=== PATIENT | female | born 1985 | race Caucasian/White ===

== ENCOUNTER 2017-03-23 17:01 | Emergency (ER) | payer OTHER ==
[2017-03-23 17:12] VITALS: RESP 16; TEMP 98.6
--- NOTE | 2017-03-23 18:42 | EDPHY ---
H & P Time Seen by Provider: 03/23/17 18:37 HPI/ROS: CHIEF COMPLAINT: Vaginal bleeding, 14 weeks HISTORY OF PRESENT ILLNESS: The patient is a 32 y/o female who is 14 weeks , presenting with vaginal bleeding. [No fever, chills, chest pain, shortness of breath, palpitations, vomiting, diarrhea, urinary complaints, headache, lightheadedness. ] REVIEW OF SYSTEMS: Aside from elements discussed in the HPI, a comprehensive 10-point review of systems was reviewed and is negative. PAST MEDICAL HISTORY: SOCIAL HISTORY: VITAL SIGNS: Reviewed by me GENERAL: Well-developed, well-nourished, resting comfortably in no respiratory distress. HEENT: Atraumatic. Eyes: No icterus, no injection. Mouth: moist mucous membranes. No erythema or lesions. Neck: supple with no adenopathy. LUNGS: Clear to auscultation bilaterally, no wheezes, rhonchi or rales. CARDIAC: Regular rate and rhythm, no rubs, murmurs or gallops. ABDOMEN: Soft, nontender, nondistended, bowel sounds normal. BACK: No CVA tenderness. EXTREMITIES: No trauma. No edema. Range of motion is normal throughout. NEURO: Alert and oriented, grossly nonfocal. SKIN: Warm and dry, no rash. PSYCHIATRIC: Normal mentation, no agitation. Portions of this note were transcribed by a medical technologist hematology. I personally performed a history, physical exam, medical decision making, and confirmed accuracy of information the transcribed note. Smoking Status: Never smoked Constitutional: Initial Vital Signs Temperature (C) 37.0 C 03/23/17 17:08 Heart Rate 103 H 03/23/17 17:08 Respiratory Rate 16 03/23/17 17:08 Blood Pressure 134/82 H 03/23/17 17:08 O2 Sat (%) 98 03/23/17 17:08 O2 Delivery Mode Room Air Departure - Departure Referrals: NONE *PRIMARY CARE P,. [Primary Care Provider] - As per Instructions
--- NOTE | 2017-03-23 18:44 | EDPHY ---
H & P Stated Complaint: lower abd cramping (R>L) bleeding since 1529, 14 wks Time Seen by Provider: 03/23/17 18:37 HPI/ROS: CHIEF COMPLAINT: Vaginal bleeding, 14 weeks HISTORY OF PRESENT ILLNESS: The patient is a A+ blood type, 32 y/o female, , who is 14 weeks ( established via 8 week ultrasound), presenting with vaginal bleeding and cramping since 14:30, 2 hours ago. The cramping lasted around 10 minutes. She thinks there were blood clots in the vaginal bleeding. She also had a brief episode of right-sided abdominal pain. Denies prior episodes of spotting, history of gallstones, abdominal surgeries, abdominal trauma. Denies recent sexual intercourse although she did masturbate this morning with a small vibrator. She was placed on antibiotics for a urinary bacterial infection 2 weeks ago. She has had morning sickness, that is exacerbated by her pre-shelby vitamins. No fever, chills, chest pain, shortness of breath, palpitations, vomiting, diarrhea, headache, lightheadedness. REVIEW OF SYSTEMS: Aside from elements discussed in the HPI, a comprehensive 10-point review of systems was reviewed and is negative. PAST MEDICAL HISTORY: 2 elective abortions SOCIAL HISTORY: Fiance at bedside, lives in [place], denies alcohol, tobacco , or marijuana use VITAL SIGNS: HR: 103, BP 134/83, others reviewed by me as normal GENERAL: Well-developed, well-nourished, somewhat anxious.. HEENT: Atraumatic. Eyes: No icterus, no injection. Mouth: moist mucous membranes. No erythema or lesions. Neck: supple with no adenopathy. LUNGS: Clear to auscultation bilaterally, no wheezes, rhonchi or rales. CARDIAC: Regular rate and rhythm, no rubs, murmurs or gallops. ABDOMEN: Lower abdominal tenderness. Soft, nondistended, bowel sounds normal. Uterus is palpable above the symphysis pubis. Pelvic: Scant vaginal bleeding BACK: No CVA tenderness. EXTREMITIES: No trauma. No edema. Range of motion is normal throughout. NEURO: Alert and oriented, grossly nonfocal. SKIN: Warm and dry, no rash. PSYCHIATRIC: Normal mentation, no agitation. Portions of this note were transcribed by a medical specialist. I personally performed a history, physical exam, medical decision making, and confirmed accuracy of information the transcribed note. - Personal History LMP (Females 10-55): Current Tetanus/Diphtheria Vaccine: Unsure Current Tetanus Diphtheria and Acellular Pertussis (TDAP): Unsure - Medical/Surgical History Hx Asthma: No Hx Chronic Respiratory Disease: No Hx Diabetes: No Hx Cardiac Disease: No Hx Renal Disease: No Hx Cirrhosis: No Hx Alcoholism: No Hx HIV/AIDS: No Hx Splenectomy or Spleen Trauma: No Other PMH: elective x 2. no abd surgeries - Social History Smoking Status: Never smoked Constitutional: Initial Vital Signs Temperature (C) 37.0 C 03/23/17 17:08 Heart Rate 103 H 03/23/17 17:08 Respiratory Rate 16 03/23/17 17:08 Blood Pressure 134/82 H 03/23/17 17:08 O2 Sat (%) 98 03/23/17 17:08 O2 Delivery Mode Room Air Allergies/Adverse Reactions: No Known Allergies Allergy (Unverified 03/23/17 18:57) Home Medications: Medication Instructions Recorded 03/23/17 Medical Decision Making - Diagnostics Imaging Results: Ultrasound: Impression: There is a single viable intrauterine gestation at 14 weeks 2 days with evidence of marginal placenta previa, but no subchorionic hemorrhage. The patient should return at 20 weeks gestation for more complete anatomic screening and repeat biometry. Findings were discussed with Pricilla Siegel MD at 20:38, on 03/23/2017. Dictated By: Gilmar Escalera MD Imaging: Discussed imaging studies w/ call center manager Radiologist Procedures: Procedure: A limited transabdominal ultrasound was performed on this patient. The indication for the study was abdominal pain, vaginal bleeding in 14 week female. Evaluate for heart tones. She had a positive 8 week ultrasound. On the examination I found that there single up living IUP with movement and cardiac activity noted. Results of the exam: Single IUP with cardiac activity and movement. The procedure was interpreted and performed by myself, Dr. Siegel. ED Course/Re-evaluation: The patient is a 32 y/o female , who is 14 weeks (established via 8 week ultrasound, presenting with abdominal cramping and vaginal bleeding, onset 2 hours ago. On exam she has scant vaginal bleeding and mild lower abdominal tenderness. 1900: I preformed an bedside limited ultrasound abdominal ultrasound. There is a viable fetus with present cardiac activity and motion. 2044: Spoke with radiologist, he reports the US showed a single, living, viable fetus with marginal placenta previa. Reassessed patient and discussed laboratory and imaging results. I have advised her to have a 20 week ultrasound without fail. Return precautions provided; patient is comfortable with this plan. Differential Diagnosis: Differential diagnosis of the patient's vaginal bleeding includes threatened miscarriage, spontaneous miscarriage, incomplete miscarriage, ectopic , trauma, placenta previa, placenta abruption. - Data Points Laboratory Results: Laboratory Results 03/23/17 19:35 03/23/17 19:35 Medications Given: Discontinued Medications Acetaminophen (Tylenol) 650 mg PO EDNOW ONE Stop: 03/23/17 19:14 Last Admin: 03/23/17 19:35 Dose: 650 mg Sodium Chloride (Ns) 1,000 mls @ 0 mls/hr IV ONCE ONE; Wide Open PRN Reason: Protocol Stop: 03/23/17 19:14 Last Admin: 03/23/17 19:33 Dose: 1,000 mls Departure - Departure Disposition: Home, Routine, Self-Care Clinical Impression: Threatened miscarriage, Marginal placenta previa Condition: Good Instructions: Threatened Miscarriage (ED), Pelvic Rest (ED) Additional Instructions: You have a viable and heart rate and movement were detected on the ultrasound. Drink plenty of fluids. We advised pelvic rest. That means no tampons, douching, or sex until the bleeding stops. Follow up with your [facility] in the next week. Ensure to have a 20 week ultrasound without fail. Return to the Emergency Department if you experience worsening bleeding, vomiting, fevers or other worsening of your symptoms. Referrals: NONE *PRIMARY CARE P,. [Primary Care Provider] - As per Instructions Jamshid Valladares MD [Medical Doctor] - As per Instructions Report Scribed for: Pricilla Siegel Report Scribed by: Sommer Naik Date of Report: 03/23/17 Time of Report: 18:45
[2017-03-23 19:02] LABS: COLOR YELLOW; LEUKOCYTE ESTERASE,URINE NEGATIVE (NEGATIVE); NITRITE,URINE NEGATIVE (NEGATIVE)
[2017-03-23 19:06] LABS: MUCUS TRACE /lpf (NONE-1+); RBC,URINE 50-182 /hpf (0-3)
[2017-03-23] MEDS ORDERED: NS 1,000 ML IV ONE (19:13)
[2017-03-23] MEDS ORDERED: ACETAMINOPHEN 325 MG TAB PO ONE (19:13)
[2017-03-23 19:32] LABS: MUCUS TRACE /lpf (NONE-1+); RBC,URINE 50-182 /hpf (0-3)
[2017-03-23 19:45] LABS: % IMMATURE GRANULYOCYTES 0.3 % (0.0-1.1); ABSOLUTE IMMATURE GRANULOCYTES 0.03 10^3/uL (0.00-0.10); ADD DIFF? NO; ADD MORPH? NO; ADD SCAN? NO; ATYPICAL LYMPHOCYTE FLAG 0 (0-99); FRAGMENT RBC FLAG 0 (0-99); HEMATOCRIT 36.3 % (38.0-47.0); HEMOGLOBIN 12.9 g/dL (12.6-16.3); LEFT SHIFT FLG 0 (0-99); LIPEMIA HEMOLYSIS FLAG 90 (0-99); MEAN CELL HEMOGLOBIN 32.1 pg (27.9-34.1); MEAN CELL HEMOGLOBIN CONCENTR. 35.5 g/dL (32.4-36.7); MEAN CELL VOLUME 90.3 fL (81.5-99.8); MEAN PLATELET VOLUME 10.8 fL (8.7-11.7); PLATELET CLUMPS FLAG 20 (0-99); PLATELET COUNT 194 10^3/uL (150-400); RED BLOOD CELL COUNT 4.02 10^6/uL (4.18-5.33); RED CELL DISTRIBUTION WIDTH 11.9 % (11.5-15.2)
[2017-03-23 20:02] LABS: ALANINE AMINOTRANSFERASE 28 IU/L (9-52); ALBUMIN 3.6 g/dL (3.5-5.0); ALKALINE PHOSPHATASE 42 IU/L (38-126); ANION GAP 10 mEq/L (8-16); ASPARTATE AMINOTRANSFERASE 21 IU/L (14-46); BILIRUBIN,TOTAL 0.3 mg/dL (0.1-1.4); BILIRUBIN-UNCONJUGATED 0.3 mg/dL (0.0-1.1); CALCIUM 9.1 mg/dL (8.5-10.4); CARBON DIOXIDE 22 mEq/l (22-31); CHLORIDE 104 mEq/L (97-110); CREATININE 0.5 mg/dL (0.6-1.0); GLOMERULAR FILTRATION RATE > 60; GLUCOSE 86 mg/dL (70-100); POTASSIUM 3.7 mEq/L (3.5-5.2); SODIUM 136 mEq/L (134-144); TOTAL PROTEIN 6.1 g/dL (6.3-8.2)
[2017-03-23 21:22] VITALS: BP 113/64; PULSE 81; O2SAT 97
== END 2017-03-23 21:21 | disposition home or self-care (01) ==
DX: O20.0 Threatened abortion (principal); O44.02 Complete placenta previa NOS or without hemorrhage, second trimester; O99.282 Endocrine, nutritional and metabolic diseases complicating pregnancy, second trimester; E86.9 Volume depletion, unspecified; Z3A.14 14 weeks gestation of pregnancy

== ENCOUNTER 2017-09-18 00:53 | Inpatient (IN) | payer OTHER ==
[2017-09-18] MEDS ORDERED: MISOPROSTOL 200 MCG TAB PR PRN (02:18)
[2017-09-18] MEDS ORDERED: TERBUTALINE SULFATE 1 MG/ML VIAL IV PRN (02:18)
[2017-09-18] MEDS ORDERED: LIDOCAINE 1% 300 MG/30 ML SDV SC PRN (02:18)
[2017-09-18] MEDS ORDERED: OLIVE OIL 118 ML BTL MISC PRN (02:18)
[2017-09-18] MEDS ORDERED: OXYTOCIN/RINGERS LACTATE 1,000 ML IV PRN (02:18)
[2017-09-18] MEDS ORDERED: LR 1,000 ML IV PRN (02:18)
[2017-09-18] MEDS ORDERED: EPSOM SALT 454 GM TP PRN (02:18)
[2017-09-18] MEDS ORDERED: IBUPROFEN 600 MG TAB PO PRN (02:18)
[2017-09-18 02:55] LABS: PLATELET COUNT 201 10^3/uL (150-400)
[2017-09-18] MEDS ORDERED: LIDOCAINE 1% 300 MG/30 ML SDV ONE (02:56)
[2017-09-18] MEDS ORDERED: MISOPROSTOL 200 MCG TAB ONE (02:57)
[2017-09-18] MEDS ORDERED: AMMONIA AROMATIC 1 EACH AMP IH ONE (02:57)
[2017-09-18] MEDS ORDERED: TERBUTALINE SULFATE 1 MG/ML VIAL ONE (02:57)
[2017-09-18] MEDS ORDERED: OLIVE OIL 118 ML BTL ONE (02:57)
[2017-09-18] MEDS ORDERED: OXYTOCIN 10 UNIT/ML VIAL ONE (02:57)
[2017-09-18] MEDS ORDERED: ONDANSETRON 4 MG/2 ML VIAL IVP PRN ×3 (03:30→16:52)
[2017-09-18] MEDS ORDERED: fentaNYL 2MCG/ML/BUP 0.1% RTU 100 ML EP SCH (03:30)
[2017-09-18] MEDS ORDERED: LR 500 ML IV SCH (03:30)
[2017-09-18] MEDS ORDERED: PHENYLEPHRINE HCL 100 MCG/ML SYR IVP PRN (03:30)
[2017-09-18] MEDS ORDERED: NARCOTIC DRIP BAG-TOTAL ALL TYPES IV PRN (03:33)
[2017-09-18] MEDS ORDERED: FENT2MCG/ML&BUP0.1% 1 EA, fentaNYL 200 MCG, BUPIVACAINE 0.5% 20 ML in NS 100 ML IV SCH (03:33)
--- NOTE | 2017-09-18 03:33 | PREANESOB ---
Obstetric Pre-Anesthesia Info - General Info Proposed Procedure: DANIAL : 3 Para: 0 MURPHY: 09/22/17 Gestational Age: 39 week(s) and 3 day(s) - Info Status: Full Term FHR Pattern: Reassuring - Labor Status Cervical Dilation per last OB SVE: 3 PIH: No Magnesium Sulfate in Use: No Indications for Labor Analgesia: BP Control Labor Epidural: Yes Anesthesia Allergies/Adverse Reactions: Allergy/AdvReac Type Severity Reaction Status Date / Time No Known Allergies Allergy Unverified 03/23/17 18:57 Home Medications: Medication Instructions Recorded 03/23/17 Visit Medications: Generic Name Dose Route Start Last Admin Trade Name Freq PRN Reason Stop Dose Admin Lactated Ringer's 1,000 mls @ 0 mls/hr 09/18/17 02:18 Lr IV 09/19/17 02:17 PRN PRN SEE PROTOCOL CONDITIONS Protocol Per Protocol Oxytocin/Lactated Ringer's 1,000 mls @ 125 mls/hr 09/18/17 02:18 Pitocin 20 Units/Lr (Premix) IV PRN PRN Post bleeding Ibuprofen 600 mg 09/18/17 02:18 Motrin PO ONCE PRN post , pain Lidocaine HCl 300 mg 09/18/17 02:18 Lidocaine Hcl 1% SC 03/17/18 02:17 ONCE PRN episiotomy Magnesium Sulfate 454 gm 09/18/17 02:18 Epsom Salt TP 03/17/18 02:17 Q1H PRN perineal discomfort Misoprostol 800 - 1,000 mcg 09/18/17 02:18 Cytotec MN ONCE PRN Vaginal Atony/Bleeding [place] Oil 118 ml 09/18/17 02:18 Sweet Oil MISC 03/17/18 02:17 ONCE PRN perineal massage Terbutaline Sulfate 0.25 mg 09/18/17 02:18 Brethine IV 03/17/18 02:17 ONCE PRN Tachysystole Discontinued Medications Generic Name Dose Route Start Last Admin Trade Name Freq PRN Reason Stop Dose Admin Ammonia (Aromatic Spirit) Confirm 09/18/17 02:57 Ammonia Aromatic Administered 09/18/17 02:58 Dose 1 each IH .STK-MED ONE Lidocaine HCl Confirm 09/18/17 02:56 Lidocaine Hcl 1% Administered 09/18/17 02:57 Dose 300 mg .ROUTE .STK-MED ONE Misoprostol Confirm 09/18/17 02:57 Cytotec Administered 09/18/17 02:58 Dose 1,000 mcg .ROUTE .STK-MED ONE [place] Oil Confirm 09/18/17 02:57 Sweet Oil Administered 09/18/17 02:58 Dose 118 ml .ROUTE .STK-MED ONE Oxytocin Confirm 09/18/17 02:57 Pitocin Administered 09/18/17 02:58 Dose 40 unit .ROUTE .STK-MED ONE Terbutaline Sulfate Confirm 09/18/17 02:57 Brethine Administered 09/18/17 02:58 Dose 1 mg .ROUTE .STK-MED ONE - Vital Signs Height/Weight (Nursing): Height 167.64 cm Weight 84.368 kg Labs: 09/18/17 02:35
[2017-09-18] MEDS ORDERED: PHENYLEPHRINE HCL 100 MCG/ML SYR ONE (03:35)
[2017-09-18] MEDS ORDERED: BUPIVACAINE 0.25% 30 ML SDV ONE (03:35)
[2017-09-18] MEDS ORDERED: fentaNYL 100 MCG/2 ML INJ ONE ×3 (03:35→17:43)
--- NOTE | 2017-09-18 06:12 | GHP ---
[f rep st] PREOP HISTORY AND PHYSICAL DATE OF ADMISSION: 09/18/2017 HISTORY OF PRESENT ILLNESS: The patient is a 32-year-old, G3, A2, at 39+ weeks gestation with an est imated due date of 09/22/2017, who presents after spontaneous rupture of membranes and spontaneous on set of contractions in early labor. The patient had spontaneous leakage of clear fluid at approximat tasha 2320 on 09/17, and thereafter felt contractions start pretty quickly and frequent, however, mild. The patient arrived at the hospital within a couple hours as the contraction frequency was continui ng and they were increasing in intensity. Upon arrival, the patient was 2 cm dilated at 50% effaced. An AmniSure confirmed rupture of membranes as there was not a lot of leakage of fluid. As the pain increased the patient requested an epidural, and this has been placed and the patient is now comfort able and resting. CARE: The patient has been with [facility] since 8 weeks gestation. Initially, t he patient was noted on ultrasound to have complete placenta previa and several ultrasounds were perf ormed through the which revealed migration of the placenta and by 33 weeks the previa was t otally resolved. The patient has a history of anxiety and this was relatively well controlled throug h the . LABS: Maternal blood type A positive with negative antibody screen. RPR nonreactive. Rube lla immune. Hepatitis B surface antigen negative. HIV negative. Cystic fibrosis, SMA both negative . 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 Thyroid function tests were in the normal range. Parvo virus wa s immune. Urinalysis and culture showed contamination. Pap smear was normal. Gonorrhea and chlamyd ia were negative. Verifi testing was negative and MSAFP was negative. A 1-hour Glucola was slightly elevated at 133, but a 3-hour GTT was normal. [place] had [place] testing [place] [facility] [place]. GBS test was negative. PAST MEDICAL HISTORY: Patient with frequent UTIs in the past but none for a couple of years. Family history of depression and the patient has had anxiety in the past. PAST SURGICAL HISTORY: Odontectomy. PAST OBSTETRIC HISTORY: Two elective terminations of in the first trimester in 2013 in 201 5. ALLERGIES: Patient has no known drug allergies. CURRENT MEDICATIONS: Only vitamins. SOCIAL HISTORY: Patient has a supportive partner, Tigre, here with her in labor. The patient has a history of smoking one pack a day up to the age of 27. Reports marijuana use in high school, but non e since. Patient reports social alcohol prior to the . No other illicit drug use. PHYSICAL EXAMINATION: Upon admission the patient is a well-developed, well-nourished, white female i n distress prior to the epidural, but now resting comfortably. Vital signs normal and the patient is afebrile. See nursing documentation for full details. heart tones reveal a category 1 tracin g with a baseline in the 120s with good variability and accelerations. Contractions now continue poly roximately every three minutes after the epidural placement. Pelvic exam reveals the cervix is 3 cm dilated, 90% effaced at 0 station. Clear fluid noted on the exam. Extremities show moderate amount of edema. ASSESSMENT: Intrauterine at 39+ weeks gestation with spontaneous rupture of membranes and onset of contractions in early labor. Patient comfortable with epidural. GBS negative. Fragile X c arrier. PLAN: Will expect a vaginal delivery. Will add Pitocin if needed if contractions space with garrett flores /[id number]/MODL
[2017-09-18] MEDS ORDERED: LR 500 ML IV PRN (07:56)
--- NOTE | 2017-09-18 07:59 | OBPROG ---
Labor Progress Note Assessment/Plan: Assessment: [id number] with IUP@39-3wks labor SROM- clear GBS Negative cat 2 FHR tracing Plan: IUPC placed at this time, unable to continuous pickling line pickler helper contractions start pitocin for augmentation- pt consents reassess 2hr/PRN 09/18/17 14:00 Subjective/Intrapartum Course: 09/18/17 Pt doing well, denies any pain or pressure. comfortable with DANIAL. Objective: 09/18/17 02:35 Patient ABO/Rh A POSITIVE 09/18/17 02:35 - SVE Dilation (cm): 3 Effacement (%): 90 Station: -1 Membranes: SROM Amniotic Fluid Color: Clear - Contraction Pattern Assessment Current Contraction Pattern: Irregular - FHR Assessment Kaur FHR Category: 2 (decel x 6 min noted) - Procedures Non-surgical Procedures: IUPC Oxytocin Orders Assessment - Pre-Induction/Augmentation Assessment Gestational Age: 39 week(s) and 3 day(s) ICD10 Worksheet Patient Problems: Problems Problem Status Onset Normal labor Acute
[2017-09-18] MEDS ORDERED: OXYTOCIN/RINGERS LACTATE 500 ML IV SCH (08:00)
--- NOTE | 2017-09-18 10:52 | PREANESOB ---
Obstetric Pre-Anesthesia Info - General Info Proposed Procedure: C/S : 3 Para: 0 MURPHY: 09/22/17 Gestational Age: 39 week(s) and 3 day(s) - Info Status: Full Term, Kaur Monitors: External FHR Pattern: Reassuring (Worrisome HR trace during oxytocin infusion now resolved with terbutaline. Oxytocin will be restarted in an hour; C/S likely if fetus doesn't tolerate it.) - Labor Status Cervical Dilation per last OB SVE: 3 Station per last OB SVE: -1 Amniotic Fluid Color: Clear Indications for Current Section: Non-reas. Status Labor Epidural: Yes Anesthesia Allergies/Adverse Reactions: Allergy/AdvReac Type Severity Reaction Status Date / Time No Known Allergies Allergy Unverified 03/23/17 18:57 Home Medications: Medication Instructions Recorded 03/23/17 Visit Medications: Generic Name Dose Route Start Last Admin Trade Name Freq PRN Reason Stop Dose Admin Lactated Ringer's 1,000 mls @ 0 mls/hr 09/18/17 02:18 Lr IV 09/19/17 02:17 PRN PRN SEE PROTOCOL CONDITIONS Protocol Per Protocol Oxytocin/Lactated Ringer's 1,000 mls @ 125 mls/hr 09/18/17 02:18 Pitocin 20 Units/Lr (Premix) IV PRN PRN Post bleeding Fentanyl/Bupivacaine HCl 1 ea/ 100 mls @ mls/hr 09/18/17 03:33 Fentanyl 200 mcg/ Bupivacaine IV 09/28/17 03:32 HCl 20 ml/ Sodium Chloride AD JULIANA As Directed Lactated Ringer's 500 mls @ 0 mls/hr 09/18/17 03:30 Lr IV 03/17/18 03:29 CONT JULIANA As Directed Lactated Ringer's 500 mls @ 500 mls/hr 09/18/17 07:56 Lr IV 09/19/17 07:56 PRN PRN Maternal Hypotension Oxytocin/Lactated Ringer's 500 mls @ 0 mls/hr 09/18/17 08:00 Pitocin 30 Units/Lr (Premix) IV 03/17/18 07:59 CONT JULIANA Protocol Per Protocol Ibuprofen 600 mg 09/18/17 02:18 Motrin PO ONCE PRN post , pain Lidocaine HCl 300 mg 09/18/17 02:18 Lidocaine Hcl 1% SC 03/17/18 02:17 ONCE PRN episiotomy Magnesium Sulfate 454 gm 09/18/17 02:18 Epsom Salt TP 03/17/18 02:17 Q1H PRN perineal discomfort Miscellaneous Medication 1 ea 09/18/17 03:33 Narcotic Drip-Total All Types IV 03/17/18 03:32 PRN PRN Pyxis removal Misoprostol 800 - 1,000 mcg 09/18/17 02:18 Cytotec OR ONCE PRN Vaginal Atony/Bleeding [place] Oil 118 ml 09/18/17 02:18 Sweet Oil MISC 03/17/18 02:17 ONCE PRN perineal massage Ondansetron HCl 4 mg 09/18/17 03:30 Zofran IVP 09/19/17 03:29 Q4HRS PRN Nausea/Vomiting, Can't Take PO Phenylephrine HCl 100 mcg 09/18/17 03:30 Neosynephrine IVP 03/17/18 03:29 .Q2M PRN Hypotension Terbutaline Sulfate 0.25 mg 09/18/17 02:18 09/18/17 10:20 Brethine IV 03/17/18 02:17 0.25 mg ONCE PRN Administration Tachysystole Discontinued Medications Generic Name Dose Route Start Last Admin Trade Name Freq PRN Reason Stop Dose Admin Ammonia (Aromatic Spirit) Confirm 09/18/17 02:57 Ammonia Aromatic Administered 09/18/17 02:58 Dose 1 each IH .STK-MED ONE Bupivacaine HCl Confirm 09/18/17 03:35 Sensorcaine 0.25% Sdv Administered 09/18/17 03:36 Dose 30 ml .ROUTE .STK-MED ONE Fentanyl Confirm 09/18/17 03:35 Sublimaze Administered 09/18/17 03:36 Dose 100 mcg .ROUTE .STK-MED ONE Lidocaine HCl Confirm 09/18/17 02:56 Lidocaine Hcl 1% Administered 09/18/17 02:57 Dose 300 mg .ROUTE .STK-MED ONE Misoprostol Confirm 09/18/17 02:57 Cytotec Administered 09/18/17 02:58 Dose 1,000 mcg .ROUTE .STK-MED ONE [place] Oil Confirm 09/18/17 02:57 Sweet Oil Administered 09/18/17 02:58 Dose 118 ml .ROUTE .STK-MED ONE Oxytocin Confirm 09/18/17 02:57 Pitocin Administered 09/18/17 02:58 Dose 40 unit .ROUTE .STK-MED ONE Phenylephrine HCl Confirm 09/18/17 03:35 Neosynephrine Administered 09/18/17 03:36 Dose 1,000 mcg .ROUTE .STK-MED ONE Terbutaline Sulfate Confirm 09/18/17 02:57 Brethine Administered 09/18/17 02:58 Dose 1 mg .ROUTE .STK-MED ONE - Anesthesia History Response to Local Anesthetics: Normal Anesthesia & Operative History: No Prior Problems - Social History Substance Use/Abuse: Denies - Vital Signs Latest Vital Signs (Nursing): Temp Pulse Resp BP Pulse Ox 80 112/60 09/18/17 10:20 09/18/17 10:20 Height/Weight (Nursing): Height 167.64 cm Weight 84.368 kg - Focused Exam Neck exam: FROM Mallampati Score: Class 2 Mouth exam: normal dental/mouth exam Pulmonary: no respiratory distress, no rales or rhonchi, clear to auscultation Cardiovascular: regular rate and rhythym, no murmur, rub, or gallop Labs: 09/18/17 02:35 Patient ABO/Rh A POSITIVE 09/18/17 02:35 General Comments: Epidural in place, working well. Will plan to use it for C/S.
--- NOTE | 2017-09-18 13:45 | OBPROG ---
Labor Progress Note Assessment/Plan: Assessment: [id number] with IUP@ labor GBS Negative cat 2 FHR tracing Prolong decel x 6 min Plan: FSE placed cont to monitor will restart pit in 1 hour, allow baby to recover reassess 2hr/PRN Subjective/Intrapartum Course: 09/18/17 13:45 Pt doing well, denies any pain or pressure. She is comfortable with DANIAL. FOB at BS. Objective: 09/18/17 02:35 Patient ABO/Rh A POSITIVE 09/18/17 02:35 Temp Pulse Resp BP Pulse Ox 80 112/60 09/18/17 10:20 09/18/17 10:20 - SVE Dilation (cm): 5 Effacement (%): 90 Station: 0 Membranes: SROM Amniotic Fluid Color: Clear - Contraction Pattern Assessment Current Contraction Pattern: Irregular - FHR Assessment Kaur FHR (bpm): 140 FHR Pattern Variability: Moderate FHR Category: 2 - Procedures Non-surgical Procedures: FSE - Physical Exam General Appearance: WD/WN, alert Oxytocin Orders Assessment - Pre-Induction/Augmentation Assessment Gestational Age: 39 week(s) and 3 day(s) ICD10 Worksheet Patient Problems: Problems Problem Status Onset Normal labor Acute
--- NOTE | 2017-09-18 14:03 | OBPROG ---
Labor Progress Note Assessment/Plan: Assessment: [id number] with IUP@39-3 labor GBS Negative cat 2 FHR tracing marked variability x 20 min Plan: cont to monitor Dr Jonas vásquez, recommended to give terb restart pit in 1 hour with cat 1 tracing 09/18/17 14:03 09/18/17 14:04 Subjective/Intrapartum Course: 09/18/17 13:45 Pt doing well, denies any pain or pressure. She is comfortable with DANIAL. FOB at BS. Objective: 09/18/17 02:35 Patient ABO/Rh A POSITIVE 09/18/17 02:35 Temp Pulse Resp BP Pulse Ox 80 112/60 09/18/17 10:20 09/18/17 10:20 - SVE Membranes: SROM Amniotic Fluid Color: Clear - Contraction Pattern Assessment Current Contraction Pattern: Irregular - Procedures Non-surgical Procedures: FSE Oxytocin Orders Assessment - Pre-Induction/Augmentation Assessment Gestational Age: 39 week(s) and 3 day(s) ICD10 Worksheet Patient Problems: Problems Problem Status Onset Normal labor Acute
--- NOTE | 2017-09-18 14:48 | OBPROG ---
Labor Progress Note Assessment/Plan: Assessment: [id number] with IUP@39-3 intolerance to labor GBS Negative cat 2 FHR tracing Plan: consult with Dr Mcdaniel likely proceed with c/s reviewed B/R/A- pt verbalizes understanding pt consented, written consent to be obtained 09/18/17 14:47 09/18/17 14:48 Subjective/Intrapartum Course: 09/18/17 13:45 Pt doing well, denies any pain or pressure. She is comfortable with DANIAL. FOB at BS. Objective: 09/18/17 02:35 Patient ABO/Rh A POSITIVE 09/18/17 02:35 Temp Pulse Resp BP Pulse Ox 80 112/60 09/18/17 10:20 09/18/17 10:20 - SVE Dilation (cm): 6 Effacement (%): 90 Station: 0 Membranes: SROM Amniotic Fluid Color: Clear - Contraction Pattern Assessment Current Contraction Pattern: Irregular - FHR Assessment Kaur FHR (bpm): 145 FHR Pattern Variability: Moderate FHR Category: 2 - Procedures Non-surgical Procedures: FSE Oxytocin Orders Assessment - Pre-Induction/Augmentation Assessment Gestational Age: 39 week(s) and 3 day(s) ICD10 Worksheet Patient Problems: Problems Problem Status Onset Normal labor Acute
[2017-09-18] MEDS ORDERED: LR 500 ML IV ONE (15:35)
[2017-09-18] MEDS ORDERED: ceFAZolin 2 GM/DEXTROSE 100 ML IV ONE (15:35)
[2017-09-18] MEDS ORDERED: CITRIC ACID/SODIUM CITRATE 30 ML UDCUP PO ONE (15:46)
[2017-09-18] MEDS ORDERED: morphINE PF 5 MG/10 ML INJ ONE (15:49)
[2017-09-18] MEDS ORDERED: CHLOROPROCAINE HCL 2% 400 MG/20 ML VIAL ONE (15:52)
[2017-09-18] MEDS ORDERED: OXYTOCIN 100 UNITS/10 ML VIAL ONE (15:52)
[2017-09-18] MEDS ORDERED: LR 1,000 ML IV SCH (16:00)
[2017-09-18] MEDS ORDERED: ceFAZolin 2 GM/SWFI 2 GM/20 ML SYR IVP ONE (16:00)
[2017-09-18] MEDS ORDERED: fentaNYL 100 MCG/2 ML INJ IVP PRN (16:46)
[2017-09-18] MEDS ORDERED: MEPERIDINE 25 MG/0.5 ML AMP IVP PRN (16:46)
[2017-09-18] MEDS ORDERED: NALOXONE HCL 0.4 MG/ML INJ IVP PRN (16:46)
--- NOTE | 2017-09-18 17:33 | POSTANESTH ---
Post Anesthetic Evaluation Cardiovascular Status: Normal, Stable Respiratory Status: Normal, Stable, Similar to Pre-op Cond. Level of Consciousness/Mental Status: Can Participate in Eval, Alert and Oriented Pain Control: Adequate, Prn Tx Ordered Nausea/Vomiting Control: Adequate, Prn Tx Ordered Complications Possibly Related to Anesthesia: None Noted
[2017-09-18] MEDS ORDERED: PROMETHAZINE HCL 25 MG/ML INJ IVP PRN (17:41)
[2017-09-18] MEDS ORDERED: ACETAMINOPHEN 325 MG TAB PO PRN (17:41)
[2017-09-18] MEDS ORDERED: SIMETHICONE 80 MG TAB CHEW PO PRN (17:41)
--- NOTE | 2017-09-18 17:50 | SUROPNOTE ---
[facility] Operative Report - Surgery Date of Operation: 09/18/17 Surgeon: Edil Mcdaniel Service Coordinator Elderly Facility: Heidi Nash CNM Anesthesia: Epidural Pre-op Diagnosis: intollerance of labor Post-op Diagnosis: Same Procedure: Primary low transverse section Findings: [id number] baby boy, grossly normal placenta and cord, nl uterus/tubes/ ovaries Inf/Abcess present in the surg proc area at time of surgery?: No EBL: 600cc Complications: None Specimen(s): Cord blood gasses sent, placenta not sent to pathology
[2017-09-18] MEDS: KETOROLAC 30 MG/1 ML SDV IVP SCH (18:52)
[2017-09-18] MEDS: HYDROCODONE/APAP 5/325 TAB PO PRN (22:10)
[2017-09-19] MEDS: KETOROLAC 30 MG/1 ML SDV IVP SCH ×4 (01:24→13:01)
[2017-09-19] MEDS: HYDROCODONE/APAP 5/325 TAB PO PRN ×4 (10:08→21:04)
[2017-09-19] MEDS: DOCUSATE SODIUM 100 MG CAP PO PRN ×2 (10:08→21:04)
--- NOTE | 2017-09-19 10:10 | OBPP ---
Progress Note Assessment/Plan: Assessment: 32 y/o POD #1 s/p LTCS secondary to intolerance to labor doing well. Plan: Ambulate with assistance, PO pain meds, d/c estevez today and support. 09/19/17 10:09 Subjective/ Course: 09/19/17 10:07 Pt is feeling ok this am. She has taken [place] in the middle of the night and Toradol which is working well. She is up in the chair and is tolerating reg diet. She is working on breast feeding and baby is doing well. Estevez is still in place, will be removed later this am. Objective: 09/19/17 06:05 Patient ABO/Rh A POSITIVE 09/18/17 02:35 Temp Pulse Resp BP Pulse Ox 37.1 C 76 16 85/55 L 97 09/19/17 06:00 09/19/17 06:00 09/19/17 06:00 09/19/17 06:00 09/19/17 06:00 Uterine Position/Fundal Height: Umbilicus -2 Uterine Tone: Firm Physical Exam - Physical Exam General Appearance: WD/WN, alert, no apparent distress Neck: non-tender, full range of motion, supple Respiratory: chest non-tender, lungs clear, normal breath sounds Cardiac/Chest: regular rate, rhythm Abdomen: normal bowel sounds, incision (c/d/i) Extremities: swelling (no), José Luis's sign (neg)
[2017-09-19] MEDS: IRON POLYSAC/IRON HEME 28 MG TAB PO SCH (21:05)
[2017-09-20] MEDS: HYDROCODONE/APAP 5/325 TAB PO PRN ×4 (01:04→18:58)
[2017-09-20] MEDS: IBUPROFEN 600 MG TAB PO PRN ×4 (01:04→22:18)
[2017-09-20] MEDS: DOCUSATE SODIUM 100 MG CAP PO PRN ×2 (08:49→21:29)
[2017-09-20] MEDS: IRON POLYSAC/IRON HEME 28 MG TAB PO SCH ×2 (08:49→21:29)
--- NOTE | 2017-09-20 11:49 | OBPP ---
Progress Note Assessment/Plan: Assessment: 1) s/p 1 LTCS secondary to intolerance to labor pod # 2 - pt is stable 2) Anemia - pt is asymptomatic Plan: Continue routine pp care Encourage ambulation Will cont to monitor incision, pt is afebrile Cont iron and colace Plan for d/c home in 24-48 hrs 09/20/17 11:49 Subjective/ Course: 09/19/17 10:07 Pt is feeling ok this am. She has taken [place] in the middle of the night and Toradol which is working well. She is up in the chair and is tolerating reg diet. She is working on breast feeding and baby is doing well. Ayala is still in place, will be removed later this am. Objective: 09/19/17 06:05 Patient ABO/Rh A POSITIVE 09/18/17 02:35 Temp Pulse Resp BP Pulse Ox 36.7 C 83 16 102/65 98 09/20/17 08:00 09/20/17 08:00 09/20/17 08:00 09/20/17 08:00 09/20/17 08:00 Uterine Position/Fundal Height: Umbilicus -2 Uterine Tone: Firm Physical Exam - Physical Exam Respiratory: lungs clear, normal breath sounds Cardiac/Chest: regular rate, rhythm Abdomen: normal bowel sounds, soft, flatus (+), incision (C/D/I, well approximated; minimal erythema noted and marked), other (appropriate tenderness) Extremities: non-tender, normal inspection Skin: normal color, warm/dry Neuro/Psych: alert, normal mood/affect, oriented x 3
[2017-09-21] MEDS: HYDROCODONE/APAP 5/325 TAB PO PRN ×3 (01:25→16:01)
[2017-09-21] MEDS: IBUPROFEN 600 MG TAB PO PRN ×3 (06:16→19:11)
[2017-09-21] MEDS: DOCUSATE SODIUM 100 MG CAP PO PRN ×2 (09:25→21:41)
[2017-09-21] MEDS: IRON POLYSAC/IRON HEME 28 MG TAB PO SCH ×2 (09:25→21:41)
--- NOTE | 2017-09-21 12:24 | OBPP ---
Progress Note Assessment/Plan: Assessment: 32 y/o POD #3 s/p LTCS secondary to intolerance to labor doing well. Plan: Bowel protocol today, support. Continue current pain regimen. 09/19/17 10:09 09/21/17 12:23 Subjective/ Course: 09/19/17 10:07 Pt is feeling ok this am. She has taken [place] in the middle of the night and Toradol which is working well. She is up in the chair and is tolerating reg diet. She is working on breast feeding and baby is doing well. Ayala is still in place, will be removed later this am. 09/21/17 12:21 Pt is doing well today. She has good post op pain control with 1 [place] and scheduled Ibuprofen. She is ambulating and voiding and has min lochia. She has + flatus but no BM yet. Breast feeding is challenging, baby has a shallow latch and they may begin to supplement today. She is beginning to produce good amounts of colustrum. Objective: 09/19/17 06:05 Patient ABO/Rh A POSITIVE 09/18/17 02:35 Temp Pulse Resp BP Pulse Ox 36.1 C 90 16 114/76 97 09/20/17 21:37 09/20/17 21:37 09/20/17 21:37 09/20/17 21:37 09/20/17 21:37 Uterine Position/Fundal Height: Umbilicus -2 Uterine Tone: Firm Physical Exam - Physical Exam General Appearance: alert, no apparent distress Neck: non-tender, full range of motion, supple Respiratory: chest non-tender, lungs clear, normal breath sounds Cardiac/Chest: regular rate, rhythm Abdomen: normal bowel sounds, incision (c/d/i, mi eccomysis in dependent portion , no erythema today) Extremities: swelling (no), José Luis's sign (neg)
[2017-09-22] MEDS: HYDROCODONE/APAP 5/325 TAB PO PRN ×3 (00:09→14:16)
[2017-09-22] MEDS: IBUPROFEN 600 MG TAB PO PRN ×2 (04:13→10:39)
[2017-09-22] MEDS: DOCUSATE SODIUM 100 MG CAP PO PRN (08:09)
[2017-09-22] MEDS: IRON POLYSAC/IRON HEME 28 MG TAB PO SCH (08:09)
[2017-09-22 08:43] VITALS: BP 112/77
--- NOTE | 2017-09-22 16:19 | OBPP ---
Progress Note Assessment/Plan: Assessment: [id number] pod# 4 s/p PLTCS for arrest of dilation and intolerance of labor breast feeding Plan: routine discharge instructions and post care follow up in 2, 4 and 6 weeks 09/22/17 16:17 Subjective/ Course: 09/19/17 10:07 Pt is feeling ok this am. She has taken [place] in the middle of the night and Toradol which is working well. She is up in the chair and is tolerating reg diet. She is working on breast feeding and baby is doing well. Ayala is still in place, will be removed later this am. 09/21/17 12:21 Pt is doing well today. She has good post op pain control with 1 [place] and scheduled Ibuprofen. She is ambulating and voiding and has min lochia. She has + flatus but no BM yet. Breast feeding is challenging, baby has a shallow latch and they may begin to supplement today. She is beginning to produce good amounts of colustrum. 09/22/17 16:18 patient is doing well. pain is well controlled. normal lochia. passing gas and had a bowel movement. denies headache and changes in vision. ready to go home. questions answered. working on breast feeding. Objective: 09/19/17 06:05 Patient ABO/Rh A POSITIVE 09/18/17 02:35 Temp Pulse Resp BP Pulse Ox 36.1 C 74 14 112/77 98 09/22/17 08:00 09/22/17 08:00 09/22/17 08:00 09/22/17 08:00 09/22/17 08:00 Physical Exam - Physical Exam Neck: non-tender, full range of motion, supple Respiratory: chest non-tender, lungs clear, normal breath sounds Cardiac/Chest: normal peripheral pulses, regular rate, rhythm Abdomen: normal bowel sounds, non-tender Extremities: normal range of motion, non-tender, normal inspection, normal capillary refill Skin: normal color, warm/dry, other (incision clean dry and intact) Neuro/Psych: no motor/sensory deficits, alert, normal mood/affect, oriented x 3
--- NOTE | 2017-09-22 16:20 | OBGCSDC ---
General Delivery Information - General Info : 3 Para: 1 Abortions: 2 L&D Analgesia/Anesthesia Type: Epidural Admission Date: 09/18/17 Labs: Patient ABO/Rh A POSITIVE 09/18/17 02:35 Hct 27.5 % (38.0-47.0) L 09/19/17 06:05 - Hospital Course Intrapartum: 09/18/17 13:45 Pt doing well, denies any pain or pressure. She is comfortable with DANIAL. FOB at BS. : 09/19/17 10:07 Pt is feeling ok this am. She has taken [place] in the middle of the night and Toradol which is working well. She is up in the chair and is tolerating reg diet. She is working on breast feeding and baby is doing well. Ayala is still in place, will be removed later this am. 09/21/17 12:21 Pt is doing well today. She has good post op pain control with 1 [place] and scheduled Ibuprofen. She is ambulating and voiding and has min lochia. She has + flatus but no BM yet. Breast feeding is challenging, baby has a shallow latch and they may begin to supplement today. She is beginning to produce good amounts of colustrum. 09/22/17 16:18 patient is doing well. pain is well controlled. normal lochia. passing gas and had a bowel movement. denies headache and changes in vision. ready to go home. questions answered. working on breast feeding. Vaginal - Diagnosis Amniotic Fluid Color: Clear - Procedures Non-surgical Procedures: FSE - Delivery Providers Surgeon: Edil Mcdaniel - Delivery Non-surgical Procedures: FSE Data MURPHY: 09/22/17 Gestational Age: 40 week(s) and 0 day(s) Kaur Delivery Date: 09/18/17 Delivery Time: 16:40 Sex of : Male Weight (gm): 4298 kg Score (1 Min): 8 Score (5 Min): 9 Discharge Information - Discharge Information Prescriptions: Hydrocodone/APAP 5/325 [[place] 5/325 (*)] 1 - 2 tab PO Q4HRS PRN #30 tab PRN Reason: Pain, Moderate Ibuprofen [Motrin (*)] 600 mg PO Q6HRS PRN #30 tab PRN Reason: Pain, Mild Condition: Good
== END 2017-09-22 16:15 | disposition home or self-care (01) | DRG 766 ==
LOC: FLD 00:53 → FOB 20:00
PROVIDERS: ADMIT Obstetrics & Gynecology; ATTEND Obstetrics & Gynecology
PROC: 10D00Z1 Extraction of Products of Conception, Low, Open Approach (ICD-10-PCS; principal; 2017-09-18)
PROC: 3E033VJ Introduction of Other Hormone into Peripheral Vein, Percutaneous Approach (ICD-10-PCS; 2017-09-18)
DX: O77.1 Fetal stress in labor or delivery due to drug administration (principal); O62.0 Primary inadequate contractions; O42.92 Full-term premature rupture of membranes, unspecified as to length of time between rupture and onset of labor; O99.02 Anemia complicating childbirth; D64.9 Anemia, unspecified; Z14.8 Genetic carrier of other disease; Z87.442 Personal history of urinary calculi; Z87.891 Personal history of nicotine dependence; Z3A.39 39 weeks gestation of pregnancy; Z37.0 Single live birth
CPT/HCPCS: J0690; J1885; J2274; J2370; J2400; J2590; J3010; J3105

== ENCOUNTER 2018-06-20 10:19 | Emergency (ER) | payer OTHER ==
--- NOTE | 2018-06-20 10:49 | EDPHY ---
H & P Stated Complaint: Tingling to right side of face since last night Time Seen by Provider: 06/20/18 10:32 HPI/ROS: Chief Complaint: Facial numbness, blurry vision, headaches HPI: 33-year-old woman who is 9 months who is been having headaches , some blurry vision and facial numbness. Patient began having facial numbness in the right cheek last night while at a movie with a friend. Is persisted overnight. She was recently seen by neurologist for some persistent headaches a been having and they have ordered an MRI. She has been having some vague neurologic complaints with some blurry vision occasionally, numbness and tingling in her extremities. She has been increasingly anxious and is concerned that she may have had a stroke or have MS. She presented urgent care this morning complaining of concerns about tingling in her face was sent here for further evaluation. Patient is having persistent by temporal headaches, moderate. Of note her son has been ill recently with RSV over the last couple weeks. was at the bedside states that he feels she is increasingly anxious and the vague symptoms are making her more tearful and anxious.. ROS: 10 systems were reviewed and were negative except those elements noted in the HPI. PMH: Denies Social History: No smoking, no alcohol, no recreational drug use Family History: non-contributory Physical Exam: Gen: Awake, Alert, No Distress HEENT: Nose: no rhinorrhea Eyes: PERRLA, EOMI Mouth: Moist mucosa Neck: Supple, no JVD Chest: nontender, lungs clear to auscultation Heart: S1, S2 normal, no murmur Abd: Soft, non-tender, no guarding Back: no CVA tenderness, no midline tenderness Ext: no edema, non-tender Skin: no rash Neuro: CN II-XII intact, Sensation grossly intact, Strength 5/5 in bilateral upper and lower extremities - Personal History LMP (Females 10-55): 8-14 Days Ago Current Tetanus Diphtheria and Acellular Pertussis (TDAP): Yes - Medical/Surgical History Hx Asthma: No Hx Chronic Respiratory Disease: No Hx Diabetes: No Hx Cardiac Disease: No Hx Renal Disease: No Hx Cirrhosis: No Hx Alcoholism: No Hx HIV/AIDS: No Hx Splenectomy or Spleen Trauma: No Other PMH: Denies - Social History Smoking Status: Never smoked Constitutional: Initial Vital Signs Temperature (C) 36.6 C 06/20/18 10:19 Heart Rate 106 H 06/20/18 10:19 Respiratory Rate 18 06/20/18 10:19 Blood Pressure 133/89 H 06/20/18 10:19 O2 Sat (%) 95 06/20/18 10:19 O2 Delivery Mode Room Air Allergies/Adverse Reactions: No Known Allergies Allergy (Unverified 03/23/17 18:57) Home Medications: Medication Instructions Recorded NK [No Known Home Meds] 06/20/18 Medical Decision Making - Diagnostics Imaging Results: Imaging Impressions Brain MRI 06/20/18 10:46 Impression: Normal MRI of the brain. Results discussed with Dr. Rolan March at 12:24 PM. ED Course/Re-evaluation: MRI laboratory evaluations are normal. Patient has a completely normal neurologic exam. She has been reassured. Symptoms are consistent wing anxiety and possible depression. Patient is not feeling depressed or suicidal at this time. is at the bedside is very supportive. Will discharge with follow-up with primary care physician. - Data Points Laboratory Results: Laboratory Results 06/20/18 10:57 06/20/18 10:57 06/20/18 06/20/18 10:57 10:57 WBC 9.42 10^3/uL 10^3/uL (3.80-9.50) RBC 5.06 10^6/uL 10^6/uL (4.18-5.33) Hgb 15.3 g/dL g/dL (12.6-16.3) Hct 46.1 % % (38.0-47.0) MCV 91.1 fL fL (81.5-99.8) MCH 30.2 pg pg (27.9-34.1) MCHC 33.2 g/dL g/dL (32.4-36.7) RDW 12.3 % % (11.5-15.2) Plt Count 309 10^3/uL 10^3/uL (150-400) MPV 10.9 fL fL (8.7-11.7) Neut % (Auto) 77.6 % H % (39.3-74.2) Lymph % (Auto) 15.1 % % (15.0-45.0) [place] % (Auto) 6.4 % % (4.5-13.0) Eos % (Auto) 0.3 % L % (0.6-7.6) Baso % (Auto) 0.4 % % (0.3-1.7) Nucleat RBC Rel Count 0.0 % % (0.0-0.2) Absolute Neuts (auto) 7.31 10^3/uL H 10^3/uL (1.70-6.50) Absolute Lymphs (auto) 1.42 10^3/uL 10^3/uL (1.00-3.00) Absolute Monos (auto) 0.60 10^3/uL 10^3/uL (0.30-0.80) Absolute Eos (auto) 0.03 10^3/uL 10^3/uL (0.03-0.40) Absolute Basos (auto) 0.04 10^3/uL 10^3/uL (0.02-0.10) Absolute Nucleated RBC 0.00 10^3/uL 10^3/uL (0-0.01) Immature Gran % 0.2 % % (0.0-1.1) Immature Gran # 0.02 10^3/uL 10^3/uL (0.00-0.10) Sodium 137 mEq/L mEq/L (135-145) Potassium 4.1 mEq/L mEq/L (3.5-5.2) Chloride 106 mEq/L mEq/L (97-110) Carbon Dioxide 21 mEq/l L mEq/l (22-31) Anion Gap 10 mEq/L mEq/L (6-14) BUN 9 mg/dL mg/dL (7-23) Creatinine 0.6 mg/dL mg/dL (0.6-1.0) Estimated GFR > 60 Glucose 102 mg/dL H mg/dL (70-100) Calcium 9.6 mg/dL mg/dL (8.5-10.4) Departure - Departure Disposition: Home, Routine, Self-Care Clinical Impression: Anxiety, Paresthesia Condition: Good Instructions: Anxiety (ED) Additional Instructions: Follow up with primary care physician in 2-3 days for further evaluation. Referrals: Melany Taveras PA [Primary Care Provider] - As per Instructions
[2018-06-20 11:06] LABS: PLATELET COUNT 309 10^3/uL (150-400)
[2018-06-20] MEDS ORDERED: GADOBUTROL 10 ML VIAL IVP ONE (11:35)
[2018-06-20 12:51] VITALS: BP 137/91
== END 2018-06-20 12:50 | disposition home or self-care (01) ==
DX: F41.9 Anxiety disorder, unspecified (principal); R20.2 Paresthesia of skin
CPT/HCPCS: A9585

== ENCOUNTER → 2018-10-06 | Outpatient (CLI) | payer OTHER | LOC: BMCIMAGING 09:52 ==